=== PATIENT | female | born 1960 | race Caucasian/White ===

== ENCOUNTER → 2018-12-09 | Outpatient (CLI) | payer BC ==
--- NOTE | 2018-12-10 09:44 | PCVCIMAG ---
APPROVED REPORT Study performed: 12/09/2018 08:44:03 EXAM: Comprehensive 2D, Doppler, and color-flow Echocardiogram Patient Location: Echo lab Room #: 2Status: routine BSA: 2.06 HR: 65 bpmBP: 140/78 mmHg Rhythm: NSR Other Information Study Quality: Good Risk Factors: Cardiac Risk Factors: FHX of CAD Indications Murmur 2D Dimensions IVSd: 8.62 (7-11mm)LVOT Diam: 22.36 (18-24mm) LVDd: 56.01 mm PWd: 8.86 (7-11mm)Ascending Ao: 36.41 (22-36mm) LVDs: 32.40 (25-40mm) Left Atrium: 44.02 (27-40mm) Aortic Root: 24.40 mm LV Single Plane 4CH: 54.90 % LV Single Plane 2CH: 52.02 % Biplane EF: 54.0 % Volumes Left Atrial Volume (Systole) Single Plane 4CH: 71.02 mLSingle Plane 2CH: 29.69 mL Biplane LA Volume: 47.00 mLLA ESV Index: 23.00 mL/m2 Aortic Valve AoV Peak Castillo.: 2.34 m/s AO Peak Gr.: 20.10 mmHgLVOT Max P.91 mmHg AO Mean Gr.: 12.39 mmHgLVOT Mean P.31 mmHg AO V2 Mean: 1.69 m/sLVOT Max V: 1.42 m/s AO V2 VTI: 56.65 cmLVOT Mean V: 0.98 m/s BRIDGETTE (VTI): 2.23 [id number] V1 VTI: 32.13 cm BRIDGETTE Vmax: 2.39 cm2 SV (LVOT): 126.12 mL Mitral Valve E/A Ratio: 1.1 MV Decel. Time: 104.20 ms MV E Max Castillo.: 0.95 m/s MV A Castillo.: 0.87 m/s IVRT: 51.90 ms TDI E/Lateral E': 7.31E/Medial E': 10.56 Medial E' Castillo.: 0.09 m/s Lateral E' Castillo.: 0.13 m/s Pulmonary Valve PV Peak Castillo.: 1.09 m/sPV Peak Gr.: 4.79 mmHg Pulmonary Vein P Vein S: 0.69 m/sP Vein A: 0.27 m/s P Vein D: 0.64 m/sP Vein A Dur.: 86.5 msec P Vein S/D Ratio: 1.08 Tricuspid Valve TR Peak Castillo.: 2.31 m/s TR Peak Gr.: 21.31 mmHg TV Vmax: 0.61 m/sPA Pressure: 28.00 mmHg Left Ventricle The left ventricle is normal size. There is normal LV segmental wall motion. There is normal left ventricular wall thickness. Left ventricular systolic function is normal. The left ventricular ejection fraction is within the normal range. LVEF is 55%. The left ventricular diastolic function is normal. Right Ventricle The right ventricle is normal size. The right ventricular systolic function is normal. Atria The left atrium size is normal. The right atrium size is normal. Aortic Valve The aortic valve is not well visualized. Mildly calcified. Possible mild stenosis No aortic regurgitation is present. Calculated aortic valve area is 2.2 cm2 with maximum pressure gradient of 22 mmHg and mean pressure gradient of 12 mmHg. Mitral Valve The mitral valve is normal in structure. There is no mitral valve regurgitation noted. No evidence of mitral valve stenosis. Tricuspid Valve The tricuspid valve is normal in structure. Trace to mild tricuspid regurgitation with a PA pressure of 28 mmHg. Pulmonic Valve The pulmonary valve is normal in structure. There is no pulmonic valvular regurgitation. Great Vessels The aortic root is normal in size. The ascending aorta is normal in size. Aortic arch is normal in caliber. IVC is normal in size and collapses >50% with inspiration. Pericardium There is no pericardial effusion. There is no pleural effusion. <Conclusion> Left ventricular systolic function is normal. There is normal LV segmental wall motion. LVEF is 55%. Normal diastolic function The aortic valve is not well visualized. Mildly calcified. Possible mild stenosis. No insufficiency Calculated aortic valve area is 2.2 cm2 with maximum pressure gradient of 22 mmHg and mean pressure gradient of 12 mmHg. The mitral valve is normal in structure. No mitral valve regurgitation Trace to mild tricuspid regurgitation with a pulmonary artery pressure of 28 mmHg. There is no pericardial effusion.
== END | disposition home or self-care (01) ==
LOC: PCVCIMAG 09:38
PROVIDERS: ATTEND Internal Medicine
DX: R01.1 Cardiac murmur, unspecified (principal)
CPT/HCPCS: 93306